=== PATIENT | female | born 1995 | race Caucasian/White ===

== ENCOUNTER 2022-09-03 19:36 | Inpatient (IN) ==
[2022-09-03] MEDS ORDERED: OXYTOCIN/LR 20 UNIT/1,000 ML BAG IV ONE (20:23)
[2022-09-03] MEDS ORDERED: LACTATED RINGERS 500 ML IV PRN (20:23)
[2022-09-03] MEDS ORDERED: miSOPROStoL 200 MCG TABLET RECTAL PRN (20:23)
[2022-09-03] MEDS ORDERED: MEPERIDINE 50 MG/1 ML VIAL IV PRN (20:23)
[2022-09-03] MEDS ORDERED: TRANEXAMIC ACID 1,000 MG in SODIUM CHLORIDE 0.9% 100 ML IV PRN (20:23)
[2022-09-03] MEDS ORDERED: METHYLERGONOVINE 0.2 MG/1 ML AMP IM PRN (20:23)
[2022-09-03] MEDS ORDERED: BUTORPHANOL 2 MG/ML VIAL IV PRN (20:23)
[2022-09-03] MEDS ORDERED: CARBOPROST TROMETHAMINE 250 MCG/ML AMP IM PRN (20:23)
[2022-09-03] MEDS ORDERED: ACETAMINOPHEN 325 MG TABLET PO PRN (20:23)
[2022-09-03] MEDS: LACTATED RINGERS 1,000 ML IV SCH (20:40)
[2022-09-03 20:50] LABS: Basophils % 0.3 % (0.0-0.8); Eosinophils # 0.1 10*3/uL (0.0-0.87); Eosinophils % 0.5 % (0.00-10.9); Hemoglobin 10.9 GM/DL (12.0-16.0); Immature Granulocytes % 0.5 %; Immature Granulocytes Absolute 0.05 #; Lymphocytes # 1.7 10*3/uL (1.4-4.0); Lymphocytes % 15.7 % (21.3-54.2); Mean Corpuscular Volume 82.1 FL (87-102); Mean Platelet Volume 9.2 FL (9.6-12.0); Monocytes # 0.8 10*3/uL (0.11-0.8); Monocytes % 7.3 % (1.7-12.7); Neutrophils % 75.7 % (38.7-73.9); Platelet Count 307 T/CUMM (130-400); Red Blood Count 4.02 MC/CUMM (3.8-5.5); Red Cell Distribution Width 14.6 % (9.3-17.3); White Blood Count 10.9 T/CUMM (4-12)
[2022-09-03] MEDS ORDERED: ONDANSETRON 4 MG/2 ML VIAL IV ONE (21:07)
[2022-09-03] MEDS ORDERED: hydrOXYzine HCL 25 MG/1 ML VIAL IM PRN (21:07)
[2022-09-03] MEDS ORDERED: NALOXONE 0.4 MG/ML VIAL IV PRN (21:07)
[2022-09-03] MEDS ORDERED: ePHEDrine 50 MG/ML VIAL IV PRN (21:07)
[2022-09-03] MEDS ORDERED: PROMETHAZINE 25 MG/1 ML VIAL IM ONE (21:07)
[2022-09-03] MEDS ORDERED: diphenhydrAMINE 50 MG/1 ML VIAL IV PRN ×2 (21:07)
[2022-09-03] MEDS ORDERED: FAMOTIDINE 20 MG/2 ML VIAL IV ONE (21:09)
[2022-09-03] MEDS ORDERED: CITRIC ACID/SODIUM CITRATE 30 ML UDCUP PO ONE (21:09)
[2022-09-03] MEDS ORDERED: fentaNYL 2 MCG/ROPIV 0.2% EPID 100 ML EPIDURAL SCH (21:30)
[2022-09-03 22:34] LABS: Mucus,Urine Occasional /LPF (Occasional); Squamous Epithelial Cell,Urine Occasional /HPF (0-10)
[2022-09-03 22:35] LABS: Bilirubin,Urine Negative (Negative); Blood, Urine Negative (Negative); Glucose,Urine (UA) Negative (Negative); Ketones,Urine Negative (Negative); Nitrite,Urine Negative (Negative); Protein,Urine Negative (Negative); Urine Appearance Clear (Clear); Urine Color Yellow (Yellow); Urine Specific Gravity 1.025 (1.001-1.035); Urine Urobilinogen 0.2 eU/dL (<2.0); Urine pH 6.5 (4.5-8.0)
[2022-09-03] MEDS: ONDANSETRON 4 MG/2 ML VIAL IV PRN (23:02)
[2022-09-04] MEDS: LACTATED RINGERS 1,000 ML IV SCH (03:51)
[2022-09-04] MEDS ORDERED: OXYTOCIN/LR 20 UNIT/1,000 ML BAG IV SCH (04:30)
[2022-09-04 09:01] LABS: Cord Venous Blood HCO3 18.1 MMOL/L; Cord Venous Blood PCO2 44.4 MMHG; Cord Venous Blood PO2 25.1
[2022-09-04 09:02] LABS: Cord Arterial Blood HCO3 16.9 MMOL/L
[2022-09-04] MEDS ORDERED: IBUPROFEN 800 MG TABLET PO ONE (10:42)
[2022-09-04] MEDS ORDERED: HYDROCORTISONE 2.5% RECTAL CREAM 30 GM TUBE TOP PRN (10:53)
[2022-09-04] MEDS ORDERED: ONDANSETRON 4 MG/2 ML VIAL IV PRN (10:53)
[2022-09-04] MEDS ORDERED: ACETAMINOPHEN 325 MG TABLET PO PRN (10:53)
[2022-09-04] MEDS ORDERED: MEASLES/MUMPS/RUBELLA VACCINE 0.5 ML VIAL SUBCUT ONE (10:53)
[2022-09-04] MEDS ORDERED: WITCH HAZEL PADS 100/JAR TOP PRN (10:53)
[2022-09-04] MEDS ORDERED: LANOLIN 50% CREAM 0.3 OZ TUBE TOP PRN (10:53)
[2022-09-04] MEDS ORDERED: DIPH/TET/ACEL PERT BOOSTER VACCINE 0.5 ML VIAL IM ONE (10:53)
[2022-09-04] MEDS ORDERED: BISACODYL 10 MG SUPP RECTAL PRN (10:53)
[2022-09-04] MEDS ORDERED: oxyCODONE/ACETAMINOPHEN 5-325 MG TABLET PO PRN (10:53)
[2022-09-04] MEDS ORDERED: RHO(D) IMMUNE GLOBULIN 300 MCG SYRINGE IM ONE (10:53)
[2022-09-04] MEDS ORDERED: OXYTOCIN/LR 20 UNIT/1,000 ML BAG IV ONE (10:53)
[2022-09-04] MEDS ORDERED: BENZOCAINE 20%/MENTHOL 0.5% SPRAY 56 GM CAN TOP PRN (10:53)
[2022-09-04] MEDS: ONDANSETRON 4 MG/2 ML VIAL IV PRN (12:07)
[2022-09-04] MEDS: oxyCODONE/ACETAMINOPHEN 5-325 MG TABLET PO PRN (20:46)
[2022-09-04] MEDS: IBUPROFEN 800 MG TABLET PO PRN (20:46)
[2022-09-04] MEDS: DOCUSATE SODIUM 100 MG CAPSULE PO SCH (21:00)
[2022-09-04] MEDS ORDERED: MAGNESIUM HYDROXIDE SUSP 30 ML UDCUP PO PRN (23:47)
[2022-09-05] MEDS: IBUPROFEN 800 MG TABLET PO PRN ×2 (04:51→17:37)
[2022-09-05] MEDS: oxyCODONE/ACETAMINOPHEN 5-325 MG TABLET PO PRN ×2 (04:52→17:36)
[2022-09-05 05:04] LABS: Basophils % 0.3 % (0.0-0.8); Eosinophils # 0.2 10*3/uL (0.0-0.87); Eosinophils % 1.7 % (0.00-10.9); Hematocrit 31.7 VOL% (35.7-47.0); Hemoglobin 10.1 GM/DL (12.0-16.0); Immature Granulocytes % 0.7 %; Immature Granulocytes Absolute 0.06 #; Lymphocytes # 1.9 10*3/uL (1.4-4.0); Lymphocytes % 21.5 % (21.3-54.2); Mean Corpuscular HGB Conc 31.9 GM/DL (32-36); Mean Corpuscular Volume 85.7 FL (87-102); Mean Platelet Volume 10.2 FL (9.6-12.0); Monocytes # 0.5 10*3/uL (0.11-0.8); Monocytes % 5.2 % (1.7-12.7); Neutrophils % 70.6 % (38.7-73.9); Platelet Count 247 T/CUMM (130-400); Red Cell Distribution Width 15.3 % (9.3-17.3); White Blood Count 8.9 T/CUMM (4-12)
[2022-09-05] MEDS: LEVOTHYROXINE 100 MCG TABLET PO SCH (08:38)
[2022-09-05] MEDS: DOCUSATE SODIUM 100 MG CAPSULE PO SCH ×2 (08:39→20:43)
[2022-09-05] MEDS ORDERED: INFLUENZA VIRUS VACCINE 0.5 ML SYRINGE IM ONE (09:00)
[2022-09-06] MEDS: IBUPROFEN 800 MG TABLET PO PRN (04:15)
[2022-09-06] MEDS: oxyCODONE/ACETAMINOPHEN 5-325 MG TABLET PO PRN (04:15)
[2022-09-06] MEDS: LEVOTHYROXINE 100 MCG TABLET PO SCH (06:22)
[2022-09-06 07:37] VITALS: BP 106/66
[2022-09-06] MEDS: DOCUSATE SODIUM 100 MG CAPSULE PO SCH (08:40)
[2022-09-06] MEDS ORDERED: DIPH/TET/ACEL PERT BOOSTER VACCINE 0.5 ML VIAL IM ONE (10:36)
== END 2022-09-06 16:15 | disposition home or self-care (01) | DRG 560 ==
LOC: N.LDOUT 19:36 → N.LD 19:37 → N.OB 09-04 11:18
PROVIDERS: ADMIT Specialist; ATTEND Specialist